=== PATIENT | male | born 1995 | race Caucasian/White ===

== ENCOUNTER 2017-09-24 22:32 | Emergency (ER) | payer BC ==
[~2017-09-24] VITALS: Ht 170.2 cm; Wt 79.4 kg
[~2017-09-24 22:32] MED LIST: FIORICET 50-321 EACH PO
[2017-09-24] MEDS ORDERED: CODEINE-GUAIFE120 ML PO (23:59)
[2017-09-24] MEDS ORDERED: PROAIR HFA8.5 GM PO (23:59)
[2017-09-24] MEDS ORDERED: PREDNISONE50 MG PO (23:59)
[2017-09-24] MEDS ORDERED: AZITHROMYCIN 2250 MG PO (23:59)
[2017-09-25 00:08] VITALS: BP 132/64
== END 2017-09-25 00:09 | disposition home or self-care (01) ==
LOC: M.ERS 22:32
DX: J20.9 Acute bronchitis, unspecified (principal); F10.99 Alcohol use, unspecified with unspecified alcohol-induced disorder; Z98.890 Other specified postprocedural states

== ENCOUNTER 2018-09-26 14:03 | Emergency (ER) | payer OTHER ==
[~2018-09-26] VITALS: Ht 170.2 cm; Wt 80.7 kg
[~2018-09-26 14:03] MED LIST changes: +AZITHROMYCIN 2250 MG PO; +CODEINE-GUAIFE120 ML PO; +PREDNISONE50 MG PO; +PROAIR HFA8.5 GM PO
[2018-09-26] MEDS ORDERED: ZOFRAN ODT4 MG PO (15:45)
[2018-09-26] MEDS ORDERED: ROBAXIN 750 MG750 M1 PO (15:48)
[2018-09-26 16:13] VITALS: BP 108/59
== END 2018-09-26 16:13 | disposition home or self-care (01) ==
LOC: M.ERS 14:03
DX: S00.03XA Contusion of scalp, initial encounter (principal); M41.9 Scoliosis, unspecified; W00.0XXA Fall on same level due to ice and snow, initial encounter; Y92.89 Other specified places as the place of occurrence of the external cause; Y93.89 Activity, other specified; Y99.8 Other external cause status

== ENCOUNTER 2018-10-04 16:06 | Emergency (ER) | payer OTHER ==
[~2018-10-04] VITALS: Ht 170.2 cm; Wt 77.1 kg
[~2018-10-04 16:06] MED LIST changes: +ROBAXIN 750 MG750 M1 PO; +ZOFRAN ODT4 MG PO
[2018-10-04 17:31] LABS: INFLUENZA A ANTIGEN None Detected (None Detect); INFLUENZA B ANTIGEN None Detected (None Detect)
[2018-10-04] MEDS ORDERED: ZPAK PO (18:22)
[2018-10-04] MEDS ORDERED: PROAIR HFA8.5 GM INH (18:22)
[2018-10-04 18:30] VITALS: BP 128/63
== END 2018-10-04 18:31 | disposition home or self-care (01) ==
LOC: M.ERS 16:06
PROVIDERS: Nurse Practitioner Family
DX: J06.9 Acute upper respiratory infection, unspecified (principal); M41.9 Scoliosis, unspecified